=== PATIENT | female | born 1985 | race Hispanic/Latino ===

== ENCOUNTER 2019-09-03 08:28 | Day surgery (SDC) | payer BC ==
[2019-09-03] MEDS ORDERED: SODIUM CHLORIDE 0.9% 1000 ML 1,000 ML IV SCH (09:45)
--- NOTE | 2019-09-03 09:45 | Anesthesia Day of Surgery ---
Anesthesia Day of Surgery - Day of Surgery Patient Examined: Yes Patient H&P Reviewed: Yes Patient is NPO: Yes
--- NOTE | 2019-09-03 09:46 | Anesthesia Consultation ---
Anesthesia Consult and Med Hx Date of service: 09/03/19 - Airway Anesthetic Teeth Evaluation: Good ROM Head & Neck: Adequate Mental/Hyoid Distance: Adequate Mallampati Class: Class II Intubation Access Assessment: Probably Good - Pre-Operative Health Status ASA Pre-Surgery Classification: ASA2 Proposed Anesthetic Plan: MAC - Pulmonary Hx Smoking: Yes (Quit two weeks ago) - Central Nervous System Hx Psychiatric Problems: Yes (Anx/Depression) - Gastrointestinal Hx Gastroesophageal Reflux Disease: Yes
[2019-09-03] MEDS ORDERED: fentaNYL 100 MCG/2 ML INJ ONE (10:55)
[2019-09-03] MEDS ORDERED: PROPOFOL 200 MG/20 ML VIAL IV ONE (10:56)
[2019-09-03] MEDS ORDERED: ONDANSETRON 4 MG/2 ML INJ ONE (11:17)
--- NOTE | 2019-09-03 11:26 | Procedure Note ---
Date of procedure: 09/03/19 Pre-op diagnosis: GERD/ Dysphagia Post-op diagnosis: other (Mild,Benign Esophageal Stenosis (s/p Esophageal Balloon Dilation)/ Mild to Moderate Distal Erosive Esophagitis/ R/O Eosinophilic Esophagitis/ Gastritis/ R/O Celaic Disease/ No Peptic Ulcer Disease noted) Procedure: EGD with biopsy and s/p Balloon dilation (20 mm Balloon) Anesthesia: [facility] [place] Surgeon: OSCAR JACKSON Estimated blood loss: minimal Pathology: list Specimen disposition: to lab Condition: stable Disposition: same day (Treat with PPI. Await for biopsy results and avoid aspirin and NSAID for 4 to 5 days; otherwise resume home medication. Follow up in 1 to 2 weeks ([phone]).)
--- NOTE | 2019-09-03 11:31 | Operative Report ---
PROCEDURE: EGD with biopsy and esophageal balloon dilation. INDICATIONS: This is a 33-year-old white female in otherwise good health, who has lately been having some dysphagia and GERD symptoms. EGD was done to assess for the problem. DESCRIPTION OF PROCEDURE: Procedure was done after getting informed consent with MAC anesthesia. Instrument was passed through the hypopharynx into the esophagus, which showed some [id number] erosive esophagitis. There was possibly mild benign esophageal stenosis. This was dilated at the end of the procedure with a 20 mm balloon that was maintained for a minute. Biopsy was done from the distal esophagus as well as from the midesophagus to rule out for any associated eosinophilic esophagitis. The stomach showed some gastritis. Additional biopsy was done from the gastric antrum, gastric body and angular incisura to rule out for H. pylori and atrophic gastritis. There was minimal bleeding from the biopsy sites. The pylorus was patent. There was no gastric or duodenal ulcer noted. The duodenal lumen appeared normal. Biopsy was done from the second part to rule out for celiac disease. ASSESSMENT: Gastroesophageal reflux disease symptoms, dysphagia, mild benign esophageal stenosis, status post balloon dilation with a 20 mm balloon, rule out eosinophilic esophagitis, mild to moderate erosive esophagitis, gastritis, rule out celiac disease. No peptic ulcer disease noted and the patient had a patent pylorus. Again, there was minimal bleeding from the biopsy sites. No complications associated with the procedure. The patient is to be treated with PPI and asked to follow up in the office in 1-2 weeks' time. Procedure was done in the GI lab with assistance of the GI lab team, which included RN, Ann Mesa as well as a sybil, Humberto Chávez and with assistance of anesthesia. JOB# [id number] NATANAEL/JUAN FRANCISCO
[2019-09-03 11:58] VITALS: BP 106/64
[2019-09-03] MEDS ORDERED: LIDOCAINE MPF (2%) 20 MG/1 ML VIAL 5 ML ONE (12:30)
--- NOTE | 2019-09-03 14:13 | Post Anesthesia Evaluation ---
- Post Anesthesia Evaluation Patient Participated: Yes Airway Patent: Yes Stable Respiratory Function: Yes Nausea/Vomiting: No Temp > 96.8F: Yes Pain Manageable: Yes Adequeate Hydration: Yes Anesthesia Complications: No Block Receding Appropriately: Not Applicable Patient on Ventilator: No
== END 2019-09-03 08:29 | disposition home or self-care (01) ==
LOC: GIO 08:28
DX: R13.10 Dysphagia, unspecified (principal); K21.0 Gastro-esophageal reflux disease with esophagitis; K31.89 Other diseases of stomach and duodenum; F17.210 Nicotine dependence, cigarettes, uncomplicated; F41.9 Anxiety disorder, unspecified; F32.9 Major depressive disorder, single episode, unspecified; Z79.899 Other long term (current) drug therapy; Z98.51 Tubal ligation status; Z98.891 History of uterine scar from previous surgery
CPT/HCPCS: 43239; 43249; 81025; 88305; 88342; C1726; J2405; J2704; J3010; J7030